=== PATIENT | female | born 1965 | race African-American/Black ===

== ENCOUNTER 2020-02-23 17:00 | Inpatient (IN) | payer OTHER, MEDICAID ==
[~2020-02-23] VITALS: Ht 167.6 cm; Wt 110.7 kg
[2020-02-23 18:58] LABS: Basophils # (auto) 0 10 ^3/uL (0-0.2); Basophils % (auto) 0.3 % (0.0-2.0); Eosinophils # (auto) 0.1 10 ^3/uL (0-0.8); Eosinophils % (auto) 1.1 % (0.0-7.0); Hematocrit 42.3 % (36.0-46.0); Hemoglobin 13.1 g/dL (12.2-16.2); Mean Corpuscular Hemoglobin 25.1 pg (28.0-32.0); Mean Corpuscular Hgb Conc. 30.9 g/dL (32.0-36.0); Mean Corpuscular Volume 81.3 fL (80.0-100.0); Monocytes # (auto) 1.1 10 ^3/uL (0-1.3); Monocytes % (auto) 13.9 % (0.0-12.0); Neutrophils # (auto) 5.5 10 ^3/uL (1.6-8.6); Neutrophils % (auto) 71.7 % (37.0-80.0); Nucleated Red Blood Cells % 0.2 %; Platelet Count (auto) 630 10^3/uL (140-450); Red Blood Cells 5.21 10^6/uL (4.0-5.20); White Blood Cell 7.7 10^3/uL (4.4-10.8)
[2020-02-23 19:02] LABS: Chloride 107 mmol/L (98-107); Potassium 4.4 mmol/L (3.5-5.1); Sodium 136 mmol/L (136-145)
[2020-02-23 19:14] LABS: Anion Gap 7 (5-15); Blood Urea Nitrogen 23 mg/dL (7-18); Carbon Dioxide 22 mmol/L (21-32); Glucose 277 mg/dL (74-106)
[2020-02-23 19:15] LABS: Alanine Aminotransferase 19 U/L (13-56); Alkaline Phosphatase 79 U/L (45-117); Aspartate Aminotransferase 38 U/L (15-37); Bilirubin, Total 0.7 mg/dL (0.2-1.0); Calcium 8.5 mg/dL (8.5-10.1); Total Protein 7.9 g/dL (6.4-8.2)
[2020-02-23 19:16] LABS: Albumin 2.4 g/dL (3.4-5.0); BUN/Creatinine Ratio 22.8; GFR African American 73 mL/min; GFR Non-African American 60 mL/min; Magnesium 2.7 mg/dL (1.6-2.6)
[2020-02-23 19:33] LABS: INR 1.08 (0.9-1.15); Partial Thromboplastin Time < 20.0 sec (23.0-31.2)
[2020-02-23] MEDS ORDERED: MORPHINE SULF INJ 2 MG/ML SYRINGE 1ML IV PRN (22:00)
[2020-02-23] MEDS ORDERED: ACETAMINOPHEN 500 MG TAB PO ONE (22:00)
[2020-02-23] MEDS ORDERED: NITROGLYCERIN 0.4 MG SL TAB SL PRN (22:00)
[2020-02-23] MEDS ORDERED: ONDANSETRON HCL 4 MG/2 ML VIAL IV PRN (22:00)
[2020-02-23] MEDS ORDERED: IOHEXOL 350 MG/ML 100ML IJ ONE (22:01)
[2020-02-23 23:15] LABS: Lactate Dehydrogenase 539 U/L (84-246)
[2020-02-23] MEDS: ENOXAPARIN SOD 40 MG/0.4 ML SYRINGE SC SCH (23:19)
[2020-02-23] MEDS: DOXYCYCLINE 100MG/250ML 250 ML IV SCH (23:19)
[2020-02-23] MEDS: FAMOTIDINE 20 MG TAB PO SCH (23:19)
[2020-02-23 23:20] LABS: CRP High Sensitivity > 19.0 mg/dL (< 0.3)
[2020-02-24 06:55] LABS: Basophils # (auto) 0 10 ^3/uL (0-0.2); Hemoglobin 12.6 g/dL (12.2-16.2); Nucleated Red Blood Cells % 0.4 %
[2020-02-24 07:09] LABS: Albumin 2.7 g/dL (3.4-5.0); Calcium 9.3 mg/dL (8.5-10.1); Potassium 3.5 mmol/L (3.5-5.1)
[2020-02-24 07:13] LABS: BUN/Creatinine Ratio 24.2; Bilirubin, Total 0.8 mg/dL (0.2-1.0); Total Protein 8.2 g/dL (6.4-8.2)
[2020-02-24 08:17] LABS: Platelet Count (auto) 739 10^3/uL (140-450)
[2020-02-24 08:18] LABS: Basophils % (auto) 0.4 % (0.0-2.0); Eosinophils # (auto) 0.1 10 ^3/uL (0-0.8); Eosinophils % (auto) 1.6 % (0.0-7.0); Hematocrit 39.1 % (36.0-46.0); Lymphocytes # (auto) 1.3 10 ^3/uL (0.4-5.4); Lymphocytes % (auto) 15.1 % (10.0-50.0); Mean Corpuscular Hemoglobin 25.4 pg (28.0-32.0); Mean Corpuscular Volume 79.1 fL (80.0-100.0); Monocytes # (auto) 1.2 10 ^3/uL (0-1.3); Neutrophils # (auto) 5.8 10 ^3/uL (1.6-8.6); Neutrophils % (auto) 68.9 % (37.0-80.0); Red Blood Cells 4.94 10^6/uL (4.0-5.20); White Blood Cell 8.4 10^3/uL (4.4-10.8)
[2020-02-24 08:19] LABS: Mean Corpuscular Hgb Conc. 32.1 g/dL (32.0-36.0); Red Cell Distribution Width 16.7 % (11.8-14.3)
[2020-02-24] MEDS: ENOXAPARIN SOD 40 MG/0.4 ML SYRINGE SC SCH ×2 (09:36→22:00)
[2020-02-24] MEDS: DexAMETHasone SOD PHOS 10MG/1ML VIAL INJ IV SCH (09:36)
[2020-02-24] MEDS: FAMOTIDINE 20 MG TAB PO SCH ×2 (09:36→22:00)
[2020-02-24] MEDS: ASCORBIC ACID 1,000 MG TAB PO SCH (09:36)
[2020-02-24] MEDS: CHOLECALCIFEROL (VITD3) 2,000 UNIT CAP PO SCH (09:36)
[2020-02-24] MEDS: ZINC SULFATE 220mg CAP or TAB PO SCH (09:36)
[2020-02-24] MEDS: DOXYCYCLINE 100MG/250ML 250 ML IV SCH (09:36)
[2020-02-24] MEDS ORDERED: AZITHROMYCIN 500MG/ 250ML 250 ML IV SCH (10:00)
[2020-02-24] MEDS ORDERED: DEXTROSE (50%) 50ML SYRG IV PRN (14:45)
[2020-02-24] MEDS ORDERED: InsuLIN REG 1unit/0.01ml Soln (100units/ml) IV ONE (14:45)
[2020-02-24] MEDS ORDERED: REMDESIVIR PER PHARMACY 0 ML IV SCH (14:45)
[2020-02-24] MEDS ORDERED: cefTRIAXone 1GM/50ML D5W 50 ML IV ONE (14:45)
[2020-02-24] MEDS ORDERED: REMDESIVIR 200 MG in NS 210ml LOADING DOSE ADULT IV ONE (15:00)
[2020-02-24] MEDS: INSULIN LANTUS (GLARGINE) 1 /0.01ml (100units/ml) SC SCH ×2 (18:56→22:00)
[2020-02-24] MEDS: InsuLIN REG 1unit/0.01ml Soln (100units/ml) SC SCH (18:57)
[2020-02-24] MEDS: ACCU-CHEK COMFORT CURVE STRIP VI SCH (18:57)
[2020-02-24] MEDS: DOXYCYCLINE 100 MG TAB/CAP PO SCH (22:00)
[2020-02-25 04:41] LABS: Hepatitis B Surface Antibody Negative
[2020-02-25 06:11] LABS: Hepatitis B Surface Antigen Negative (Negative)
[2020-02-25 08:03] LABS: Basophils # (auto) 0.1 10 ^3/uL (0-0.2); Basophils % (auto) 0.7 % (0.0-2.0); Eosinophils # (auto) 0.6 10 ^3/uL (0-0.8); Eosinophils % (auto) 5.2 % (0.0-7.0); Hematocrit 40.8 % (36.0-46.0); Hemoglobin 12.9 g/dL (12.2-16.2); Lymphocytes # (auto) 1.6 10 ^3/uL (0.4-5.4); Lymphocytes % (auto) 13.1 % (10.0-50.0); Mean Corpuscular Hemoglobin 25.9 pg (28.0-32.0); Mean Corpuscular Hgb Conc. 31.7 g/dL (32.0-36.0); Mean Corpuscular Volume 81.8 fL (80.0-100.0); Monocytes # (auto) 1.4 10 ^3/uL (0-1.3); Monocytes % (auto) 11.7 % (0.0-12.0); Neutrophils # (auto) 8.5 10 ^3/uL (1.6-8.6); Neutrophils % (auto) 69.3 % (37.0-80.0); Nucleated Red Blood Cells % 2.1 %; Platelet Count (auto) 528 10^3/uL (140-450); Red Blood Cells 4.99 10^6/uL (4.0-5.20); Red Cell Distribution Width 16.8 % (11.8-14.3); White Blood Cell 12.2 10^3/uL (4.4-10.8)
[2020-02-25 08:26] LABS: Albumin 2.6 g/dL (3.4-5.0); Calcium 9.3 mg/dL (8.5-10.1); Potassium 3.6 mmol/L (3.5-5.1)
[2020-02-25 08:31] LABS: Bilirubin, Total 0.4 mg/dL (0.2-1.0); Total Protein 7.6 g/dL (6.4-8.2)
[2020-02-25] MEDS: FUROSEMIDE 20 MG/2 ML VIAL IV SCH (10:16)
[2020-02-25] MEDS: cefTRIAXone 1GM/50ML D5W 50 ML IV SCH (10:16)
[2020-02-25] MEDS: DexAMETHasone SOD PHOS 10MG/1ML VIAL INJ IV SCH (10:16)
[2020-02-25] MEDS: ACCU-CHEK COMFORT CURVE STRIP VI SCH ×4 (10:16→21:58)
[2020-02-25] MEDS: DOXYCYCLINE 100 MG TAB/CAP PO SCH ×2 (10:17→23:02)
[2020-02-25] MEDS: CHOLECALCIFEROL (VITD3) 2,000 UNIT CAP PO SCH (10:17)
[2020-02-25] MEDS: ZINC SULFATE 220mg CAP or TAB PO SCH (10:17)
[2020-02-25] MEDS: FAMOTIDINE 20 MG TAB PO SCH ×2 (10:17→23:02)
[2020-02-25] MEDS: ASCORBIC ACID 1,000 MG TAB PO SCH (10:17)
[2020-02-25] MEDS: ENOXAPARIN SOD 40 MG/0.4 ML SYRINGE SC SCH ×2 (10:21→23:02)
[2020-02-25] MEDS: InsuLIN REG 1unit/0.01ml Soln (100units/ml) SC SCH ×3 (14:42→23:30)
[2020-02-25] MEDS: INSULIN LANTUS (GLARGINE) 1 /0.01ml (100units/ml) SC SCH ×2 (14:43→22:00)
[2020-02-25] MEDS: REMDESIVIR 100 MG in SODIUM CHL 0.9% 250 ML IV SCH ×2 (18:30→20:00)
[2020-02-26] MEDS: InsuLIN REG 1unit/0.01ml Soln (100units/ml) SC SCH ×4 (01:26→18:00)
[2020-02-26 01:42] VITALS: BP 124/67
[2020-02-26] MEDS: ACCU-CHEK COMFORT CURVE STRIP VI SCH ×4 (05:50→18:00)
[2020-02-26] MEDS: INSULIN LANTUS (GLARGINE) 1 /0.01ml (100units/ml) SC SCH ×2 (10:00→23:16)
[2020-02-26] MEDS: cefTRIAXone 1GM/50ML D5W 50 ML IV SCH (10:19)
[2020-02-26] MEDS: FUROSEMIDE 20 MG/2 ML VIAL IV SCH (10:21)
[2020-02-26] MEDS: DexAMETHasone SOD PHOS 10MG/1ML VIAL INJ IV SCH (10:21)
[2020-02-26] MEDS: FAMOTIDINE 20 MG TAB PO SCH ×2 (10:21→23:07)
[2020-02-26] MEDS: ZINC SULFATE 220mg CAP or TAB PO SCH (10:21)
[2020-02-26] MEDS: DOXYCYCLINE 100 MG TAB/CAP PO SCH ×2 (10:22→23:07)
[2020-02-26] MEDS: ASCORBIC ACID 1,000 MG TAB PO SCH (10:23)
[2020-02-26] MEDS: ENOXAPARIN SOD 40 MG/0.4 ML SYRINGE SC SCH ×2 (10:24→23:08)
[2020-02-26] MEDS: CHOLECALCIFEROL (VITD3) 2,000 UNIT CAP PO SCH (10:24)
[2020-02-26] MEDS: REMDESIVIR 100 MG in SODIUM CHL 0.9% 250 ML IV SCH (15:06)
[2020-02-26 16:00] VITALS: BP 124/70
[2020-02-26] MEDS: HYDROcodone-ACET 10/325MG TAB PO PRN (18:28)
[2020-02-26] MEDS ORDERED: PREG20SO OR (19:54)
[2020-02-26] MEDS ORDERED: HYDR-4833 PO (19:54)
[2020-02-26] MEDS ORDERED: ZOLP10TA PO (19:54)
[2020-02-26] MEDS ORDERED: EST0625T PO (19:54)
[2020-02-26] MEDS: TEMAZEPAM 15 MG CAP PO PRN (23:08)
[2020-02-27] VITALS (7 sets, daily range): BP systolic 100–121; BP diastolic 53–82
[2020-02-27] MEDS: ACCU-CHEK COMFORT CURVE STRIP VI SCH ×4 (00:11→17:58)
[2020-02-27] MEDS: InsuLIN REG 1unit/0.01ml Soln (100units/ml) SC SCH ×4 (00:16→18:03)
[2020-02-27 09:05] LABS: Basophils # (auto) 0 10 ^3/uL (0-0.2); Eosinophils # (auto) 0 10 ^3/uL (0-0.8); Neutrophils # (auto) 5.1 10 ^3/uL (1.6-8.6)
[2020-02-27 09:06] LABS: Basophils % (auto) 0.1 % (0.0-2.0); Eosinophils % (auto) 0.3 % (0.0-7.0); Hematocrit 37.6 % (36.0-46.0); Hemoglobin 12.3 g/dL (12.2-16.2); Lymphocytes # (auto) 2.3 10 ^3/uL (0.4-5.4); Lymphocytes % (auto) 27.1 % (10.0-50.0); Mean Corpuscular Hemoglobin 26.3 pg (28.0-32.0); Mean Corpuscular Hgb Conc. 32.9 g/dL (32.0-36.0); Monocytes % (auto) 11.9 % (0.0-12.0); Neutrophils % (auto) 60.6 % (37.0-80.0); Red Cell Distribution Width 16.5 % (11.8-14.3); White Blood Cell 8.4 10^3/uL (4.4-10.8)
[2020-02-27 09:10] LABS: Platelet Count (auto) 806 10^3/uL (140-450)
[2020-02-27 09:12] LABS: Albumin 2.9 g/dL (3.4-5.0); Calcium 9.6 mg/dL (8.5-10.1); Potassium 3.3 mmol/L (3.5-5.1)
[2020-02-27 09:22] LABS: BUN/Creatinine Ratio 22.1; Bilirubin, Total 0.6 mg/dL (0.2-1.0); Total Protein 7.7 g/dL (6.4-8.2)
[2020-02-27] MEDS: DexAMETHasone SOD PHOS 10MG/1ML VIAL INJ IV SCH (11:15)
[2020-02-27] MEDS: ENOXAPARIN SOD 40 MG/0.4 ML SYRINGE SC SCH ×2 (11:15→21:19)
[2020-02-27] MEDS: DOXYCYCLINE 100 MG TAB/CAP PO SCH ×2 (11:16→21:19)
[2020-02-27] MEDS: ZINC SULFATE 220mg CAP or TAB PO SCH (11:16)
[2020-02-27] MEDS: CHOLECALCIFEROL (VITD3) 2,000 UNIT CAP PO SCH (11:16)
[2020-02-27] MEDS: ASCORBIC ACID 1,000 MG TAB PO SCH (11:17)
[2020-02-27] MEDS: FAMOTIDINE 20 MG TAB PO SCH ×2 (11:17→21:19)
[2020-02-27] MEDS: cefTRIAXone 1GM/50ML D5W 50 ML IV SCH (11:19)
[2020-02-27] MEDS: FUROSEMIDE 20 MG/2 ML VIAL IV SCH (11:27)
[2020-02-27] MEDS: INSULIN LANTUS (GLARGINE) 1 /0.01ml (100units/ml) SC SCH ×2 (11:35→23:30)
[2020-02-27] MEDS: REMDESIVIR 100 MG in SODIUM CHL 0.9% 250 ML IV SCH (17:14)
[2020-02-27] MEDS: HYDROcodone-ACET 10/325MG TAB PO PRN ×2 (17:59→21:24)
[2020-02-27 21:15] LABS: Urine Bacteria NONE SEEN /hpf (None Seen); Urine Blood Negative /uL (Negative); Urine Hyaline Cast FEW /lpf (0 - 2); Urine Specific Gravity 1.037 (1.001-1.035); Urine WBC 1 /hpf (0 - 5)
[2020-02-27] MEDS: TEMAZEPAM 15 MG CAP PO PRN (21:19)
[2020-02-28 00:04] VITALS: BP 97/55
[2020-02-28] MEDS: ACCU-CHEK COMFORT CURVE STRIP VI SCH ×4 (06:00→23:42)
[2020-02-28] MEDS: InsuLIN REG 1unit/0.01ml Soln (100units/ml) SC SCH ×5 (06:45→23:47)
[2020-02-28 07:56] LABS: Potassium 3.3 mmol/L (3.5-5.1)
[2020-02-28 08:00] VITALS: BP 107/55
[2020-02-28 08:12] LABS: Albumin 2.9 g/dL (3.4-5.0); BUN/Creatinine Ratio 24.4; Calcium 8.9 mg/dL (8.5-10.1)
[2020-02-28 08:15] LABS: Bilirubin, Total 0.5 mg/dL (0.2-1.0); Total Protein 7.3 g/dL (6.4-8.2)
[2020-02-28] MEDS: FUROSEMIDE 20 MG/2 ML VIAL IV SCH (10:00)
[2020-02-28] MEDS: cefTRIAXone 1GM/50ML D5W 50 ML IV SCH (10:39)
[2020-02-28] MEDS: DexAMETHasone SOD PHOS 10MG/1ML VIAL INJ IV SCH (10:39)
[2020-02-28] MEDS: ZINC SULFATE 220mg CAP or TAB PO SCH (10:39)
[2020-02-28] MEDS: FAMOTIDINE 20 MG TAB PO SCH ×2 (10:40→21:24)
[2020-02-28] MEDS: DOXYCYCLINE 100 MG TAB/CAP PO SCH ×2 (10:40→21:24)
[2020-02-28] MEDS: ASCORBIC ACID 1,000 MG TAB PO SCH (11:21)
[2020-02-28] MEDS: CHOLECALCIFEROL (VITD3) 2,000 UNIT CAP PO SCH (11:21)
[2020-02-28] MEDS: ENOXAPARIN SOD 40 MG/0.4 ML SYRINGE SC SCH ×2 (11:22→21:25)
[2020-02-28] MEDS: INSULIN LANTUS (GLARGINE) 1 /0.01ml (100units/ml) SC SCH ×2 (11:22→23:47)
[2020-02-28] MEDS ORDERED: ASPirin 81 mg TAB PO ONE (13:30)
[2020-02-28] MEDS ORDERED: POTASSIUM CHL 20 Meq TABLET PO ONE (13:45)
[2020-02-28 16:00] VITALS: BP 104/53
[2020-02-28] MEDS: REMDESIVIR 100 MG in SODIUM CHL 0.9% 250 ML IV SCH (16:39)
[2020-02-28] MEDS: TEMAZEPAM 15 MG CAP PO PRN (21:24)
[2020-02-28] MEDS: HYDROcodone-ACET 10/325MG TAB PO PRN (21:24)
[2020-02-28] MEDS ORDERED: ATORVASTATIN 20 MG TAB PO SCH (22:00)
[2020-02-29] VITALS: BP 97/57
[2020-02-29] MEDS: InsuLIN REG 1unit/0.01ml Soln (100units/ml) SC SCH ×3 (06:00→17:27)
[2020-02-29] MEDS: ACCU-CHEK COMFORT CURVE STRIP VI SCH ×4 (06:00→23:55)
[2020-02-29 08:00] VITALS: BP 91/51
[2020-02-29 09:00] VITALS: BP 91/51
[2020-02-29] MEDS: ENOXAPARIN SOD 40 MG/0.4 ML SYRINGE SC SCH ×2 (10:00→21:59)
[2020-02-29] MEDS: FUROSEMIDE 20 MG/2 ML VIAL IV SCH (10:00)
[2020-02-29] MEDS: DexAMETHasone SOD PHOS 10MG/1ML VIAL INJ IV SCH (10:53)
[2020-02-29] MEDS: ASPirin 81 mg TAB PO SCH (10:53)
[2020-02-29] MEDS: cefTRIAXone 1GM/50ML D5W 50 ML IV SCH (10:53)
[2020-02-29] MEDS: ZINC SULFATE 220mg CAP or TAB PO SCH (10:54)
[2020-02-29] MEDS: ASCORBIC ACID 1,000 MG TAB PO SCH (10:54)
[2020-02-29] MEDS: DOXYCYCLINE 100 MG TAB/CAP PO SCH (10:54)
[2020-02-29] MEDS: FAMOTIDINE 20 MG TAB PO SCH ×2 (10:54→22:00)
[2020-02-29] MEDS: CHOLECALCIFEROL (VITD3) 2,000 UNIT CAP PO SCH (10:54)
[2020-02-29] MEDS: INSULIN LANTUS (GLARGINE) 1 /0.01ml (100units/ml) SC SCH ×2 (10:55→22:00)
[2020-02-29] MEDS: ALBUTEROL SULF HFA 90MCG INH 200DOSE IN PRN (11:00)
[2020-02-29] MEDS: HYDROcodone-ACET 10/325MG TAB PO PRN ×2 (11:07→18:53)
[2020-02-29] MEDS ORDERED: LEVOTHYROXINE SODIUM 25 MCG TAB PO ONE (14:45)
[2020-02-29] MEDS ORDERED: PHENAZOPYRIDINE HCL 100 MG TAB PO ONE (14:45)
[2020-02-29 16:00] VITALS: BP 101/58
[2020-02-29 17:00] VITALS: BP 108/61
[2020-02-29] MEDS: PHENAZOPYRIDINE HCL 100 MG TAB PO SCH (17:18)
[2020-02-29] MEDS: TEMAZEPAM 15 MG CAP PO PRN (20:27)
[2020-03-01] VITALS: BP 96/57
[2020-03-01] MEDS: InsuLIN REG 1unit/0.01ml Soln (100units/ml) SC SCH ×4 (00:06→18:32)
[2020-03-01] MEDS ORDERED: traMADol HCL 50 MG TAB PO ONE (01:00)
[2020-03-01] MEDS: ACCU-CHEK COMFORT CURVE STRIP VI SCH ×3 (06:00→18:21)
[2020-03-01] MEDS ORDERED: LEVOTHYROXINE SODIUM 25 MCG TAB PO SCH (07:00)
[2020-03-01] MEDS: ALBUTEROL SULF HFA 90MCG INH 200DOSE IN PRN (07:48)
[2020-03-01 08:00] VITALS: BP 103/58
[2020-03-01 08:08] LABS: BUN/Creatinine Ratio 24.4; Calcium 8.7 mg/dL (8.5-10.1); Potassium 3.8 mmol/L (3.5-5.1)
[2020-03-01] MEDS: cefTRIAXone 1GM/50ML D5W 50 ML IV SCH (08:28)
[2020-03-01] MEDS: PHENAZOPYRIDINE HCL 100 MG TAB PO SCH ×4 (08:28→18:22)
[2020-03-01] MEDS: HYDROcodone-ACET 10/325MG TAB PO PRN (08:29)
[2020-03-01] MEDS: ENOXAPARIN SOD 40 MG/0.4 ML SYRINGE SC SCH ×2 (10:00→22:00)
[2020-03-01] MEDS: DexAMETHasone SOD PHOS 10MG/1ML VIAL INJ IV SCH (10:38)
[2020-03-01] MEDS: ASPirin 81 mg TAB PO SCH (10:38)
[2020-03-01] MEDS: ASCORBIC ACID 1,000 MG TAB PO SCH (10:39)
[2020-03-01] MEDS: ZINC SULFATE 220mg CAP or TAB PO SCH (10:39)
[2020-03-01] MEDS: CHOLECALCIFEROL (VITD3) 2,000 UNIT CAP PO SCH (10:39)
[2020-03-01] MEDS: FAMOTIDINE 20 MG TAB PO SCH ×2 (10:39→22:34)
[2020-03-01] MEDS: INSULIN LANTUS (GLARGINE) 1 /0.01ml (100units/ml) SC SCH ×2 (10:40→22:00)
[2020-03-01] MEDS ORDERED: fentaNYL 25MCG/HR 25 MCG/HR PAT TD SCH (12:45)
[2020-03-01] MEDS ORDERED: LEVOTHYROXINE SODIUM 100 MCG TAB PO ONE (12:45)
[2020-03-01] MEDS ORDERED: levoFLOXacin 500MG 100 ML IV ONE (13:00)
[2020-03-01 16:00] VITALS: BP 114/49
[2020-03-01] MEDS: TEMAZEPAM 15 MG CAP PO PRN (22:35)
[2020-03-02] VITALS: BP 105/59
[2020-03-02] MEDS: InsuLIN REG 1unit/0.01ml Soln (100units/ml) SC SCH ×3 (00:40→12:18)
[2020-03-02] MEDS: ACCU-CHEK COMFORT CURVE STRIP VI SCH ×3 (06:00→12:23)
[2020-03-02] MEDS ORDERED: LEVOTHYROXINE SODIUM 100 MCG TAB PO SCH (07:00)
[2020-03-02] MEDS: PHENAZOPYRIDINE HCL 100 MG TAB PO SCH (08:00)
[2020-03-02] MEDS: DexAMETHasone SOD PHOS 10MG/1ML VIAL INJ IV SCH (09:42)
[2020-03-02] MEDS: ALBUTEROL SULF HFA 90MCG INH 200DOSE IN PRN (09:42)
[2020-03-02] MEDS: ASPirin 81 mg TAB PO SCH (09:43)
[2020-03-02] MEDS: ASCORBIC ACID 1,000 MG TAB PO SCH (09:43)
[2020-03-02] MEDS: FAMOTIDINE 20 MG TAB PO SCH (09:43)
[2020-03-02] MEDS: ZINC SULFATE 220mg CAP or TAB PO SCH (09:43)
[2020-03-02] MEDS: CHOLECALCIFEROL (VITD3) 2,000 UNIT CAP PO SCH (09:43)
[2020-03-02] MEDS: ENOXAPARIN SOD 40 MG/0.4 ML SYRINGE SC SCH (09:44)
[2020-03-02] MEDS ORDERED: levoFLOXacin 500MG 100 ML IV SCH (10:00)
[2020-03-02] MEDS: INSULIN LANTUS (GLARGINE) 1 /0.01ml (100units/ml) SC SCH (11:31)
== END 2020-03-02 14:30 | disposition home or self-care (01) | DRG 871 ==
LOC: EDBD 17:00 → ER 17:06 → TELE 17:07 → TELE-WESTW 02-25 22:51
PROVIDERS: ADMIT Nurse Practitioner; ATTEND Internal Medicine
PROC: XW033E5 Introduction of Remdesivir Anti-infective into Peripheral Vein, Percutaneous Approach, New Technology Group 5 (ICD-10-PCS; principal; 2020-02-24)
PROC: XW13325 Transfusion of Convalescent Plasma (Nonautologous) into Peripheral Vein, Percutaneous Approach, New Technology Group 5 (ICD-10-PCS; 2020-02-27)
DX: A41.89 Other specified sepsis (principal); U07.1 COVID-19; J12.89 Other viral pneumonia; J96.01 Acute respiratory failure with hypoxia; E44.0 Moderate protein-calorie malnutrition; N39.0 Urinary tract infection, site not specified; R65.20 Severe sepsis without septic shock; E11.65 Type 2 diabetes mellitus with hyperglycemia; E66.01 Morbid (severe) obesity due to excess calories; E03.9 Hypothyroidism, unspecified; F15.90 Other stimulant use, unspecified, uncomplicated; F17.210 Nicotine dependence, cigarettes, uncomplicated; F20.9 Schizophrenia, unspecified; K76.0 Fatty (change of) liver, not elsewhere classified; I10 Essential (primary) hypertension; Z79.82 Long term (current) use of aspirin; Z98.84 Bariatric surgery status; Z93.1 Gastrostomy status; Z88.5 Allergy status to narcotic agent; Z88.8 Allergy status to other drugs, medicaments and biological substances; B96.89 Other specified bacterial agents as the cause of diseases classified elsewhere; Z68.37 Body mass index [BMI] 37.0-37.9, adult
CPT/HCPCS: 36415; 71045; 71275; 80048; 80053; 81001; 82728; 82962; 83036; 83605; 83615; 83735; 83880; 84443; 84484; 85025; 85379; 85610; 85730; 86141; 86703; 86706; 86803; 86850; 86900; 86901; 87040; 87086; 87088; 87186; 87340; 87426; 94640; G0378; J0696; J1100; J1815; J1956; J3490